=== PATIENT | male | born 1970 | race Caucasian/White ===

== ENCOUNTER → 2023-11-04 10:18 | Outpatient (REF) | payer OTHER, SELFPAY | LOC: RST 10:18 | PROVIDERS: ATTENDING PHYSICIAN Nurse Practitioner Family | DX: K21.9 Gastro-esophageal reflux disease without esophagitis (principal); R13.10 Dysphagia, unspecified | CPT/HCPCS: 74230; 92611 ==

== ENCOUNTER 2024-01-31 18:00 | Emergency (ER) | payer OTHER, SELFPAY ==
[2024-01-31 18:50] VITALS: BP 154/106
[2024-01-31 19:05] LABS: % Basophils 0.8 % (0-2); % Eosinophils 0.7 % (0-6); % Immature Granulocytes 0.2 % (0-0.5); % Lymphocytes 25.3 % (20.5-51.1); Absolute Basophils 0.1 10^3/uL (0-0.2); Absolute Eosinophils 0.1 10^3/uL (0-0.7); Absolute Lymphocytes 2.2 10^3/uL (1.2-3.4); Absolute Monocytes 1.1 10^3/uL (0.1-0.6); Absolute Neutrophils 5.1 10^3/uL (1.4-6.5); Hematocrit 42.2 % (39.0-52.0); Hemoglobin 14.4 g/dL (13.0-18.0); Mean Corp Hgb Conc. 34.1 g/dL (33.0-37.0); Mean Corpuscular Hgb 24.6 pg (27.0-31.0); Mean Platelet Volume 8.7 fL (7.4-10.4); Nucleated Red Blood Cells % 0 % (-); Platelet Count 317 10^3/uL (130-400); Red Blood Cell Count 5.86 10^6/uL (4.70-6.10); White Blood Cell Count 8.6 10^3/uL (4.8-10.8)
[2024-01-31 19:23] LABS: ALT (SGPT) 37 U/L (0-50); AST (SGOT) 44 U/L (17-59); Albumin 4.6 g/dl (3.5-5.0); Alkaline Phosphatase 100 U/L (38-126); Blood Urea Nitrogen 13 mg/dl (9-20); Calcium 9.6 mg/dl (8.4-10.2); Carbon Dioxide 24 mmol/L (22-30); Chloride 104 mmol/L (98-107); Glucose 134 mg/dl (70-99); Potassium 3.7 mmol/L (3.5-5.1); Sodium 136 mmol/L (135-145); Total Bilirubin 0.5 mg/dl (0.2-1.3); Total Protein 7.5 g/dl (6.3-8.2); eGFR > 60.00
--- NOTE | 2024-01-31 21:18 | ED.GENMED ---
History of Present Illness
General
Chief Complaint: Fever
Source: patient
Exam Limitations: none
Time Seen by Provider: 01/31/24 21:04
History of Present Illness
History of Present Illness:
See MDM
Past History
Past History
ED Past Medical History: None
ED Past Surgical History: None
Social History
Tobacco: Non-smoker
Alcohol: None
Phy Exam
Physical Exam
Physical Exam:
See MDM
Course
Orders/Labs/Results
Orders:
Orders
01/31/24 18:53
Electrocardiogram (*1) Urgent
Reason for Study: Vertigo / Dizzy
EKG- Treatment ONCE
01/31/24 19:01
CMP [Comprehensive Metabolic Panel] Urgent
Complete Blood Count/With Diff Urgent
01/31/24 21:18
0.9% Sodium Chloride 1000 ml [Nss] 1,000 ml IV BOLUS
Dexamethasone Sod Phosphate [Decadron] 10 mg IV NOW STA
Ketorolac [Toradol] 30 mg IV NOW STA
CR Chest - 2 Views Urgent
Comment:
Reason For Exam: Covid, SOB, cough
Abnormal Lab Results
01/31/24
19:01
MCV 72.0 L fL
(80.0-94.0)
MCH 24.6 L pg
(27.0-31.0)
RDW 16.0 H %
(11.5-14.5)
Absolute Monos (auto) 1.1 H 10^3/uL
(0.1-0.6)
Monocytes % 13.0 H %
(1.7-9.3)
Glucose 134 H mg/dl
(70-99)
01/31/24 19:01
01/31/24 19:01
Vital Signs
Initial and Last Documented VS:
Initial Vital Signs
Temp Pulse Resp BP Pulse Ox
98.3 F 87 20 154/106 96
01/31/24 18:50 01/31/24 18:50 01/31/24 18:50 01/31/24 18:50 01/31/24 18:50
Last Documented Vital Signs
Temp Pulse Resp BP Pulse Ox
98.3 F 87 20 155/89 97
01/31/24 18:50 01/31/24 18:50 01/31/24 18:50 01/31/24 21:30 01/31/24 21:30
MDM/Problems Addressed
Differential Diagnosis Includes:
HPI and MDM Narrative:
53-year-old male presenting for evaluation of sore throat, cough, dehydration and dizziness. Patient recently returned from a trip from [place]. He recently took a home COVID test and was positive. Patient complaining mostly of a sore throat
and decreased p.o. intake.
On exam, patient has posterior pharynx erythema. There is no exudate or uvula deviation. He has evidence of TM congestion of the left. The right is occluded by cerumen. He was made aware. He states he is on drops for this. He has normal
finger-nose bilaterally. Lungs are clear. Will give dose of Decadron to help the congestion and viral pharyngitis. Will obtain chest x-ray and will give fluids
Physical exam
General: Well appearing and non-toxic
HEENT: protecting airway. Left TM bulging but pale. Right cerumen impaction. Mildly dry mucous membranes. Erythema noted to posterior pharynx without exudate or uvular deviation
Neck: supple
CV: No evidence of cyanosis. Regular rate and rhythm
Resp: No accessory muscle use. Lungs clear
Abd: Non-distended
Extremities: No deformities
Neuro: alert. Normal finger-nose bilateral
Psych: Normal affect
Skin: Intact
Problems Addressed including Acute and Chronic Conditions affecting care:
1. COVID and viral pharyngitis
Acuity: acute
Prognosis: stable
Details: Will give dose of Decadron and Toradol
2. Shortness of breath and cough
Acuity: acute
Prognosis: stable
Details: Discussed likely in setting of viral pneumonia. Will obtain chest
3. Dehydration
Acuity: acute
Prognosis: stable
Details: Will give IV fluids
Updates
On reassessment after Toradol and Decadron, patient feeling better. Chest x-ray clear. Patient feels comfortable going home
Differential Diagnosis (but not limited to): Viral pharyngitis, bacterial pneumonia, viral syndrome
Testing considered: COVID testing but he states it was already positive at home
Drug therapy (if applicable): OTC meds, please see d/c instruction regarding Rx drugs
Amount and/or Complexity of Data Reviewed
Clinical info obtained from: Patient
External data reviewed: N/A
Labs I independently reviewed (but not limited to): White blood cell count normal
Radiology: X-ray independently reviewed: Chest x-ray clear
Pulse Ox: not hypoxic
EKG independently reviewed: N sinus rhythm, normal axis, no STEMI
[employer]: N/A
Critical Care: N/A
Risk of Complication:
Social Determinants of health: Good social support
Discussed with other providers: N/A
Escalation of Care includes Admit/Obs: After being observed in the Emergency Department, pt stable for discharge.
Occasional wrong word or 'sound a like' substitutions may have occurred due to the inherent limitations of voice recognition software. Read the chart carefully and recognize, using context, where substitutions have occurred.
*Critical Care Note
Total Time (30-74mins, 75-104mins- exclusive of procedures): Not Applicable
ED Attending Note
-
Portions of this chart may have been created with voice recognition software.� Occasional wrong word or��sound alike� substitutions may have occurred due to the inherent limitations of voice recognition software.
Discharge Plan
Departure
Patient Disposition: Home (Routine Discharge)
Date of Disposition: 01/31/24
Time of Disposition: 22:20
Patient with high blood pressure during this ER visit?: Yes
Discharge Problem:
COVID-19, Acute viral pharyngitis
Instructions: BLOOD PRESSURE
Prescriptions:
New
prednisone 20 mg tablet
40 mg PO DAILY Qty: 10 0RF
diclofenac potassium 50 mg tablet
50 mg PO BID Qty: 20 0RF
Referrals:
Rob Weiss DO [Family Provider] -
Activity Restrictions/Additional Instructions:
Please return for any worsening symptoms.
You may return at any time if you have further concerns.
Please follow up with your doctor at the first available appointment, preferably this week.
Thank you for choosing [facility].
Interventions
Interventions:
ED- Fall Risk Assessment Last Done: 01/31/24 21:17
*ED COVID-19 Vaccine History Last Done: 01/31/24 20:58
ED- Neurological Assessment Last Done: 01/31/24 21:17
ED-Skin Assessment Last Done: 01/31/24 21:17
Discharge Date and Time
Print Language: ESTONIAN
[2024-01-31 21:30] VITALS: BP 155/89
[2024-01-31] MEDS: NSS 1000 IV (21:48)
[2024-01-31] MEDS: DECADRON 10 MG IV (21:49)
[2024-01-31] MEDS: TORADOL 30 MG IV (21:49)
== END 2024-01-31 23:17 | disposition home or self-care (01) ==
LOC: EMR 18:00
PROVIDERS: Emergency Medicine; EMERGENCY PHYSICIAN Student in an Organized Health Care Education/Training Program; FAMILY PHYSICIAN Internal Medicine
DX: U07.1 COVID-19 (principal); J02.8 Acute pharyngitis due to other specified organisms
CPT/HCPCS: 99283; 96374; 96375; 96361; 71046; 80053; 85025; 93005

== ENCOUNTER 2025-01-25 06:16 | Day surgery (SDC) | payer OTHER, SELFPAY | END 2025-01-25 12:26 | disposition home or self-care (01) | LOC: GI 06:16 | PROVIDERS: ATTENDING PHYSICIAN Internal Medicine Gastroenterology | DX: R12 Heartburn (principal); R13.10 Dysphagia, unspecified; D50.9 Iron deficiency anemia, unspecified; K22.2 Esophageal obstruction; K44.9 Diaphragmatic hernia without obstruction or gangrene; K31.89 Other diseases of stomach and duodenum | CPT/HCPCS: 43239; 88305; 88342 ==